=== PATIENT | male | born 1970 | race African-American/Black ===

== ENCOUNTER 2020-05-24 08:41 | Inpatient (IN) | payer MEDICAID ==
[~2020-05-24] VITALS: Ht 182.9 cm; Wt 95.7 kg
[2020-05-24] MEDS ORDERED: NITROGLYCERIN OINT 1GM/INCH UDPKT TD ONE (09:45)
[2020-05-24] MEDS ORDERED: FUROSEMIDE 40MG/4ML VIAL IV ONE (09:45)
[2020-05-24 09:55] LABS: BASOPHILS % 0.7 % (0.0-2.0); EOSINOPHILS % 3.1 % (0.0-5.0); HEMOGLOBIN. 11.1 g/dL (14.0-18.0); LYMPHOCYTES % 16.5 % (20.0-50.0); MEAN CORPUSCULAR HEMOGLOBIN 26.3 pg (28.0-32.0); MEAN CORPUSCULAR VOLUME 80.4 fL (80.0-94.0); MEAN PLATELET VOLUME 8.9 fl (7.4-10.4); MONOCYTES % 5.8 % (2.0-8.0); NEUTROPHILS % 73.9 % (40.0-76.0); PLATELET 325 x1000/uL (130-400); RED BLOOD CELL COUNT 4.22 mill/uL (4.7-6.1); RED CELL DISTRIBUTION WIDTH 16.7 % (11.6-14.6)
[2020-05-24 10:01] LABS: CHLORIDE 102 mEq/L (98-107)
[2020-05-24 10:05] LABS: INR 1.1; PROTHROMBIN TIME 11.7 sec (9.6-11.0)
[2020-05-24] MEDS ORDERED: AZITHROMYCIN 500 MG in DEXT 5% WATER 250 ML IV ONE (12:00)
[2020-05-24] MEDS ORDERED: DEXTROSE 50% WATER 50ML SYRINGE IV PRN (13:15)
[2020-05-24 14:27] LABS: CLARITY URINE CLEAR (CLEAR); COLOR URINE YELLOW (YELLOW); KETONES URINE NEGATIVE (NEGATIVE); LEUKOCYTE ESTERASE URINE NEGATIVE (NEGATIVE); NITRITE URINE NEGATIVE (NEGATIVE); OCCULT BLOOD URINE NEGATIVE (NEGATIVE); PH URINE 7.5 (4.5-8.0); PROTEIN URINE NEGATIVE (NEGATIVE); SPECIFIC GRAVITY URINE 1.011 (1.005-1.030); UROBILINOGEN URINE 0.2 E.U./dL (0.2-1.0)
[2020-05-24 14:29] VITALS: BP 130/104
[2020-05-24 14:39] VITALS: BP 130/104
[2020-05-24] MEDS ORDERED: INSULIN GLARGINE UD 100 UNITS/ML SYR SUBCUT SCH (15:00)
[2020-05-24] MEDS: FUROSEMIDE 40MG/4ML VIAL IVP SCH (15:21)
[2020-05-24] MEDS: POTASSIUM CHLORIDE 20MEQ TABLET SR PO SCH (15:21)
[2020-05-24] MEDS: LOSARTAN POTASSIUM 25 MG TABLET PO SCH (15:21)
[2020-05-24] MEDS: ENOXAPARIN 40MG/0.4ML SYR SUBCUT SCH (15:21)
[2020-05-24] MEDS: CEFTRIAXONE 1,000 MG in DEXTROSE 5% WATER 50 ML IV SCH (15:22)
[2020-05-24 15:53] LABS: *AMPHETAMINES SCREEN URINE NEGATIVE (NEGATIVE); *BARBITURATES SCREEN URINE NEGATIVE (NEGATIVE)
[2020-05-24 15:54] LABS: *BENZODIAZEPINES SCREEN URINE NEGATIVE (NEGATIVE); *COCAINE SCREEN URINE NEGATIVE (NEGATIVE); CANNABINOID URINE SCREEN NEGATIVE (NEGATIVE); METHADONE URINE SCREEN NEGATIVE (NEGATIVE); OPIATES URINE SCREEN NEGATIVE (NEGATIVE); PHENCYCLIDINE URINE SCREEN NEGATIVE (NEGATIVE)
[2020-05-24 16:00] VITALS: BP 133/96
[2020-05-24] MEDS ORDERED: ASPI-1158 MT (17:01)
[2020-05-24] MEDS ORDERED: FURO40TA5 MT (17:01)
[2020-05-24] MEDS ORDERED: METF-414 PO (17:01)
[2020-05-24] MEDS ORDERED: SPIR25TA6 MT (17:01)
[2020-05-24] MEDS ORDERED: POTA8CAP20 MT (17:01)
[2020-05-24] MEDS ORDERED: MAGN400T26 MT (17:01)
[2020-05-24] MEDS ORDERED: ATOR-2 MT (17:01)
[2020-05-24] MEDS ORDERED: CARV3.1242 MT (17:01)
[2020-05-24] MEDS: BLOOD SUGAR DIAGNOSTIC STRIP TEST SCH ×2 (17:40→20:37)
[2020-05-24] MEDS: INSULIN LISPRO 100 UNITS/ML SUBCUT SCH ×2 (18:05→20:37)
[2020-05-24 20:00] VITALS: BP 124/77
[2020-05-24] MEDS: CARVEDILOL 6.25 MG TABLET PO SCH (20:32)
[2020-05-24] MEDS: INSULIN GLARGINE UD 100 UNITS/ML SYR SUBCUT SCH (20:39)
[2020-05-25 00:05] VITALS: BP 112/74
[2020-05-25 04:00] VITALS: BP 131/91
[2020-05-25] MEDS: BLOOD SUGAR DIAGNOSTIC STRIP TEST SCH ×2 (06:20→11:49)
[2020-05-25 08:00] VITALS: BP 129/92
[2020-05-25] MEDS: ENOXAPARIN 40MG/0.4ML SYR SUBCUT SCH (08:40)
[2020-05-25] MEDS: FUROSEMIDE 40MG/4ML VIAL IVP SCH (08:41)
[2020-05-25] MEDS: CARVEDILOL 6.25 MG TABLET PO SCH (08:41)
[2020-05-25] MEDS: LOSARTAN POTASSIUM 25 MG TABLET PO SCH (08:42)
[2020-05-25] MEDS: CEFTRIAXONE 1,000 MG in DEXTROSE 5% WATER 50 ML IV SCH (08:42)
[2020-05-25] MEDS: POTASSIUM CHLORIDE 20MEQ TABLET SR PO SCH (08:42)
[2020-05-25] MEDS: INSULIN LISPRO 100 UNITS/ML SUBCUT SCH ×2 (08:46→13:32)
[2020-05-25] MEDS ORDERED: AZITHROMYCIN 250 MG TABLET PO SCH (09:00)
[2020-05-25] MEDS: INSULIN GLARGINE UD 100 UNITS/ML SYR SUBCUT SCH (10:00)
[2020-05-25] MEDS ORDERED: ASPIRIN 81MG TABLET PO SCH (11:15)
[2020-05-25 12:00] VITALS: BP 116/88
[2020-05-25 13:07] VITALS: BP 116/88
== END 2020-05-25 16:18 | disposition home or self-care (01) | DRG 194 ==
LOC: ER 08:41 → EDBEDREQTM 10:40 → EDBEDREQ 10:40 → 7WST 11:32 → EDBEDREQTM 11:35 → EDBEDREQ 11:35 → ENRESERV 11:52 → 6WST 05-25 01:00
PROVIDERS: ADMIT Internal Medicine; ATTEND Internal Medicine
DX: I11.0 Hypertensive heart disease with heart failure (principal); D64.9 Anemia, unspecified; E11.9 Type 2 diabetes mellitus without complications; E43 Unspecified severe protein-calorie malnutrition; E78.5 Hyperlipidemia, unspecified; E87.1 Hypo-osmolality and hyponatremia; I42.9 Cardiomyopathy, unspecified; I50.23 Acute on chronic systolic (congestive) heart failure; J18.9 Pneumonia, unspecified organism; Z20.828 Contact with and (suspected) exposure to other viral communicable diseases; Z68.28 Body mass index [BMI] 28.0-28.9, adult
CPT/HCPCS: 36415; 71045; 80053; 80305; 81003; 82962; 83880; 84484; 85025; 87426; 93005; 93306; 99291; J0456; J0696; J1650; J1815; J1940; J7060

== ENCOUNTER 2020-11-11 21:09 | Inpatient (IN) | payer OTHER ==
[~2020-11-11] VITALS: Ht 188 cm; Wt 81.2 kg
[~2020-11-11 21:09] MED LIST: ASPI-1406 MT; ATOR-2 MT; CARV3.1242 MT; FURO-151 MT; FURO40TA5 MT; LEVO500T89 MT; MAGN400T26 MT; METF-414 PO; POTA8CAP20 MT; SACU1TAB MT; SPIR25TA6 MT
[2020-11-11 23:06] LABS: BASOPHILS % 0.5 % (0.0-2.0); HEMATOCRIT. 34.3 % (42.0-52.0); HEMOGLOBIN. 10.8 g/dL (14.0-18.0); LYMPHOCYTES % 24.3 % (20.0-50.0); MEAN CORPUSCULAR VOLUME 85.4 fL (80.0-94.0); MEAN PLATELET VOLUME 9.3 fl (7.4-10.4); MONOCYTES % 7.4 % (2.0-8.0); NEUTROPHILS % 64.8 % (40.0-76.0); PLATELET 301 x1000/uL (130-400); RED BLOOD CELL COUNT 4.02 mill/uL (4.7-6.1); RED CELL DISTRIBUTION WIDTH 17.6 % (11.6-14.6)
[2020-11-11 23:11] LABS: CHLORIDE 111 mEq/L (98-107)
[2020-11-11] MEDS ORDERED: FUROSEMIDE 40MG/4ML VIAL IV ONE (23:45)
[2020-11-11] MEDS ORDERED: ASPIRIN 81MG TABLET PO ONE (23:45)
[2020-11-12 10:00] VITALS: BP 130/100
[2020-11-12] MEDS ORDERED: LOSARTAN POTASSIUM 50 MG TABLET PO SCH (10:15)
[2020-11-12] MEDS ORDERED: FUROSEMIDE 40MG/4ML VIAL IVP SCH (10:15)
[2020-11-12] MEDS ORDERED: ACETAMINOPHEN 325MG TABLET PO PRN (10:15)
[2020-11-12] MEDS: ENOXAPARIN 40MG/0.4ML SYR SUBCUT SCH (11:25)
[2020-11-12] MEDS: CARVEDILOL 12.5MG TABLET PO SCH ×2 (11:25→21:32)
[2020-11-12 12:00] VITALS: BP 133/91
[2020-11-12 16:00] VITALS: BP 133/92
[2020-11-12] MEDS: ASPIRIN 81MG TABLET PO SCH (17:09)
[2020-11-12] MEDS: SACUBITRIL/VALSARTAN 24/26 TAB PO SCH (17:09)
[2020-11-12] MEDS: FUROSEMIDE 40MG/4ML VIAL IVP SCH (17:10)
[2020-11-12 20:00] VITALS: BP 120/84
[2020-11-12] MEDS ORDERED: DEXTROSE 50% WATER 50ML SYRINGE IV PRN (20:00)
[2020-11-12] MEDS: BLOOD SUGAR DIAGNOSTIC STRIP TEST SCH (21:33)
[2020-11-12] MEDS: INSULIN LISPRO 100 UNITS/ML SUBCUT SCH (21:33)
[2020-11-13] VITALS: BP 124/70
[2020-11-13 04:00] VITALS: BP 126/91
[2020-11-13] MEDS: FUROSEMIDE 40MG/4ML VIAL IVP SCH ×3 (06:19→17:23)
[2020-11-13] MEDS: BLOOD SUGAR DIAGNOSTIC STRIP TEST SCH ×4 (06:19→20:59)
[2020-11-13] MEDS: INSULIN LISPRO 100 UNITS/ML SUBCUT SCH ×4 (06:19→20:59)
[2020-11-13 06:23] LABS: CHLORIDE 108 mEq/L (98-107)
[2020-11-13 06:31] LABS: BASOPHILS % 0.8 % (0.0-2.0); EOSINOPHILS % 3.2 % (0.0-5.0); HEMATOCRIT. 31.2 % (42.0-52.0); LYMPHOCYTES % 22.5 % (20.0-50.0); MEAN CORPUSCULAR VOLUME 83.9 fL (80.0-94.0); MONOCYTES % 7.4 % (2.0-8.0); NEUTROPHILS % 66.1 % (40.0-76.0); PLATELET 261 x1000/uL (130-400); RED BLOOD CELL COUNT 3.72 mill/uL (4.7-6.1); RED CELL DISTRIBUTION WIDTH 16.6 % (11.6-14.6)
[2020-11-13 08:00] VITALS: BP 132/98
[2020-11-13] MEDS: ENOXAPARIN 40MG/0.4ML SYR SUBCUT SCH (08:26)
[2020-11-13] MEDS: ASPIRIN 81MG TABLET PO SCH (08:26)
[2020-11-13] MEDS: SACUBITRIL/VALSARTAN 24/26 TAB PO SCH ×2 (08:26→17:23)
[2020-11-13] MEDS: CARVEDILOL 12.5MG TABLET PO SCH ×2 (08:27→20:58)
[2020-11-13] MEDS ORDERED: POTASSIUM CHLORIDE 20MEQ TABLET SR PO SCH ×3 (09:00→15:00)
[2020-11-13 12:00] VITALS: BP 118/83
[2020-11-13] MEDS ORDERED: MAGNESIUM 1 G PREMIX 100 ML IV SCH (12:00)
[2020-11-13 16:00] VITALS: BP 109/79
[2020-11-13 20:00] VITALS: BP 113/81
[2020-11-14] VITALS: BP 117/86
[2020-11-14] MEDS: INSULIN LISPRO 100 UNITS/ML SUBCUT SCH ×4 (06:00→22:22)
[2020-11-14] MEDS: BLOOD SUGAR DIAGNOSTIC STRIP TEST SCH ×4 (06:01→19:53)
[2020-11-14 07:11] LABS: BASOPHILS % 0.6 % (0.0-2.0); EOSINOPHILS % 3.5 % (0.0-5.0); HEMATOCRIT. 32.5 % (42.0-52.0); HEMOGLOBIN. 10.5 g/dL (14.0-18.0); LYMPHOCYTES % 25.3 % (20.0-50.0); MEAN CORPUSCULAR HEMOGLOBIN 27.2 pg (28.0-32.0); MEAN CORPUSCULAR VOLUME 84.2 fL (80.0-94.0); MEAN PLATELET VOLUME 9.4 fl (7.4-10.4); MONOCYTES % 7.5 % (2.0-8.0); NEUTROPHILS % 63.1 % (40.0-76.0); PLATELET 290 x1000/uL (130-400); RED BLOOD CELL COUNT 3.86 mill/uL (4.7-6.1); RED CELL DISTRIBUTION WIDTH 16.7 % (11.6-14.6)
[2020-11-14 07:43] LABS: CHLORIDE 105 mEq/L (98-107)
[2020-11-14 08:00] VITALS: BP 105/70
[2020-11-14] MEDS: CARVEDILOL 12.5MG TABLET PO SCH ×2 (09:00→22:17)
[2020-11-14] MEDS: ASPIRIN 81MG TABLET PO SCH (09:19)
[2020-11-14] MEDS: FUROSEMIDE 40MG/4ML VIAL IVP SCH ×3 (09:19→16:47)
[2020-11-14] MEDS: ENOXAPARIN 40MG/0.4ML SYR SUBCUT SCH (09:20)
[2020-11-14] MEDS ORDERED: POTASSIUM CHLORIDE 20MEQ TABLET SR PO SCH (09:30)
[2020-11-14] MEDS: SACUBITRIL/VALSARTAN 24/26 TAB PO SCH ×2 (11:01→16:47)
[2020-11-14 12:00] VITALS: BP 110/75
[2020-11-14] MEDS ORDERED: SPIR25TA6 MT (13:36)
[2020-11-14] MEDS ORDERED: FURO80TA87 MT (13:36)
[2020-11-14 16:10] VITALS: BP 111/81
[2020-11-14 20:00] VITALS: BP 123/84
[2020-11-15] VITALS: BP 112/84
[2020-11-15 04:00] VITALS: BP 117/81
[2020-11-15] MEDS: BLOOD SUGAR DIAGNOSTIC STRIP TEST SCH ×2 (05:31→13:01)
[2020-11-15] MEDS: INSULIN LISPRO 100 UNITS/ML SUBCUT SCH ×2 (05:44→13:01)
[2020-11-15 07:12] LABS: EOSINOPHILS % 3.9 % (0.0-5.0); HEMATOCRIT. 34.6 % (42.0-52.0); HEMOGLOBIN. 11.2 g/dL (14.0-18.0); LYMPHOCYTES % 26.1 % (20.0-50.0); MEAN CORPUSCULAR VOLUME 83.7 fL (80.0-94.0); MEAN PLATELET VOLUME 9.3 fl (7.4-10.4); MONOCYTES % 8.9 % (2.0-8.0); NEUTROPHILS % 60.1 % (40.0-76.0); PLATELET 300 x1000/uL (130-400); RED BLOOD CELL COUNT 4.13 mill/uL (4.7-6.1); RED CELL DISTRIBUTION WIDTH 16.4 % (11.6-14.6)
[2020-11-15 07:40] LABS: CHLORIDE 102 mEq/L (98-107)
[2020-11-15 08:00] VITALS: BP 108/74
[2020-11-15] MEDS: CARVEDILOL 12.5MG TABLET PO SCH (09:00)
[2020-11-15] MEDS: ASPIRIN 81MG TABLET PO SCH (09:22)
[2020-11-15] MEDS: SACUBITRIL/VALSARTAN 24/26 TAB PO SCH (09:23)
[2020-11-15] MEDS: ENOXAPARIN 40MG/0.4ML SYR SUBCUT SCH (09:23)
[2020-11-15] MEDS: FUROSEMIDE 40MG/4ML VIAL IVP SCH ×2 (09:24→13:00)
[2020-11-15 10:50] VITALS: BP 115/83
[2020-11-15] MEDS ORDERED: POTASSIUM CHLORIDE INJ 40 MEQ in DEXT 5% WATER 250 ML IV SCH (11:00)
[2020-11-15 12:00] VITALS: BP 116/83
[2020-11-15 16:00] VITALS: BP 115/83
== END 2020-11-15 17:30 | disposition home or self-care (01) | DRG 194 ==
LOC: ER 21:09 → 8WST 11-12 00:56 → ENRESERV 11-12 07:45
PROVIDERS: ADMIT Internal Medicine; ATTEND Internal Medicine
DX: I11.0 Hypertensive heart disease with heart failure (principal); I50.23 Acute on chronic systolic (congestive) heart failure; E44.0 Moderate protein-calorie malnutrition; E87.8 Other disorders of electrolyte and fluid balance, not elsewhere classified; D72.819 Decreased white blood cell count, unspecified; D64.9 Anemia, unspecified; E11.9 Type 2 diabetes mellitus without complications; I25.10 Atherosclerotic heart disease of native coronary artery without angina pectoris; I25.5 Ischemic cardiomyopathy; I27.20 Pulmonary hypertension, unspecified; I42.0 Dilated cardiomyopathy; I45.10 Unspecified right bundle-branch block; Z68.23 Body mass index [BMI] 23.0-23.9, adult; Z79.2 Long term (current) use of antibiotics; I25.2 Old myocardial infarction; Z79.82 Long term (current) use of aspirin; Z79.899 Other long term (current) drug therapy; Z79.84 Long term (current) use of oral hypoglycemic drugs
CPT/HCPCS: 36415; 71045; 80048; 80053; 80061; 82962; 83036; 83735; 83880; 84484; 85025; 93005; 96374; 99285; J1650; J1815; J1940; J3475; J3480; J7040; J7060

== ENCOUNTER 2023-07-06 16:54 | Emergency (ER) | payer MEDICAID ==
[~2023-07-06] VITALS: Ht 177.8 cm; Wt 83.0 kg
[~2023-07-06 16:54] MED LIST changes: +CARV6.2548 MT; +EMPA10TA PO; +FERR325T30 PO; -FURO-151 MT; +FURO80TA87 MT; +LANTUSUD SUBCUT; -LEVO500T89 MT; +METF-414 MT; +SACU1TAB7 PO
[2023-07-06 17:08] VITALS: BP 137/98; RESP 20; TEMP 98.5; O2SAT 99
[2023-07-06 17:19] VITALS: PULSE 100
[2023-07-06] MEDS ORDERED: IBUP-2028 MT (20:15)
[2023-07-06] MEDS ORDERED: CLOT15CR27 TP (20:15)
[2023-07-06] MEDS ORDERED: CEPH500T MT (20:15)
[2023-07-06] MEDS ORDERED: MUPI1OIN4 TP (20:15)
== END 2023-07-06 20:42 | disposition home or self-care (01) ==
LOC: ER 20:12
DX: N47.1 Phimosis (principal); I11.0 Hypertensive heart disease with heart failure; I50.9 Heart failure, unspecified; E11.9 Type 2 diabetes mellitus without complications; E78.00 Pure hypercholesterolemia, unspecified; Z79.899 Other long term (current) drug therapy; Z79.82 Long term (current) use of aspirin
CPT/HCPCS: 99283